=== PATIENT | female | born 1950 | race Caucasian/White ===

== ENCOUNTER 2023-03-17 07:32 | Outpatient (RCR) | payer MEDICARE, SELFPAY ==
[2023-03-17 10:28] VITALS: BP 182/84; PULSE 72; RESP 18; TEMP 35.8; O2SAT 98
--- NOTE | 2023-03-17 10:30 | PC.NURSE ---
0943: Pt. to [facility] amb. Seated on side of bed. Allergies verified. Procedure explained to pt. Denies questions. Pt. undresses and to supine position. Using sterile technique, pt. straight cath'd for 150cc clear yellow urine. Pt. tolerated with no c/o discomfort. Specimen sent to lab. Pt. given wash cloth and towel for gilles area. Given privacy to dress. 1002: Pt. d/c'd amb to home.
[2023-03-17 11:08] LABS: Bilirubin Urine NEGATIVE (NEGATIVE); Blood Urine MODERATE (NEGATIVE); Clarity Urine CLEAR (CLEAR); Color Urine YELLOW (YELLOW); Glucose Urine UA NEGATIVE (NEGATIVE); Ketones Urine NEGATIVE (NEGATIVE); Leukocyte Esterase Urine NEGATIVE (NEGATIVE); Nitrite Urine NEGATIVE (NEGATIVE); Protein Urine NEGATIVE (NEG/TRACE); pH Urine 5.5 (5.0-9.0)
[2023-03-17 11:14] LABS: Urine Microscopic Indicated YES
[2023-03-17 11:22] LABS: WBC Urine NONE SEEN #/HPF (NONE SEEN)
[2023-03-17 11:23] LABS: Bacteria Urine NONE SEEN #/HPF (NONE SEEN); Mucus Urine SMALL (NONE SEEN); Squamous Epithelial Cell Urine MODERATE #/LPF (NONE/RARE)
[2023-03-17 11:24] LABS: Urine Culture Indicated NO
== END 2023-03-23 23:59 | disposition home or self-care (01) ==
LOC: INF 07:32
PROVIDERS: PCP Nurse Practitioner; Visit Provider Personal Emergency Response Attendant
DX: N30.00 Acute cystitis without hematuria (principal)
CPT/HCPCS: 51701; 81001

== ENCOUNTER 2023-06-14 07:29 | Outpatient (RCR) | payer MEDICARE, SELFPAY ==
[2023-06-14 08:40] VITALS: BP 164/89; PULSE 93; RESP 18; O2SAT 95
[2023-06-14 09:57] LABS: Bilirubin Urine NEGATIVE (NEGATIVE); Blood Urine LARGE (NEGATIVE); Clarity Urine SL CLOUDY (CLEAR); Color Urine LT. YELLOW (YELLOW); Glucose Urine UA NEGATIVE (NEGATIVE); Ketones Urine NEGATIVE (NEGATIVE); Leukocyte Esterase Urine MODERATE (NEGATIVE); Nitrite Urine POSITIVE (NEGATIVE); Protein Urine TRACE mg/dL (NEG/TRACE); Specific Gravity Urine 1.025 (1.005-1.025); Urobilinogen Urine 0.2 EU/dL (0.2-1.0)
== END 2023-06-23 23:59 | disposition home or self-care (01) ==
LOC: INF 07:29
PROVIDERS: PCP Nurse Practitioner; Visit Provider Personal Emergency Response Attendant
DX: N30.01 Acute cystitis with hematuria (principal)
CPT/HCPCS: 51701; 81003; 87086; 87150; 87186